=== PATIENT | male | born 1985 | race Caucasian/White ===

== ENCOUNTER 2019-12-25 06:09 | Emergency (ER) | payer OTHER, SELFPAY ==
[~2019-12-25] VITALS: Ht 172.7 cm; Wt 117.9 kg
[2019-12-25 06:29] VITALS: BP 139/84
--- NOTE | 2019-12-25 06:31 | NUR ---
JING DURAN EVALUATING PT.
--- NOTE | 2019-12-25 06:31 | NUR ---
TRIAGED AND WAITING IN TENT.
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
--- NOTE | 2019-12-25 06:41 | NUR ---
NO NURSING INTERVVENTION ORDERED BY JING DURAN.
--- NOTE | 2019-12-25 06:41 | NUR ---
COVID SWAB COLLECTED AND SENT TO LAB.
--- NOTE | 2019-12-25 06:41 | NUR ---
Patient discharged with v/s stable. Written and verbal after care instructions given and explained. Patient verbalized understanding. Ambulatory with steady gait. All questions addressed prior to discharge. Advised to follow up with PMD.
--- NOTE | 2019-12-26 17:38 | NUR ---
COVID-19 RESULT POSITIVE, COPY OF RESULTS WILL BE GIVEN TO SUNNI AT [facility] CONTROL
== END 2019-12-25 06:41 | disposition home or self-care (01) ==
LOC: MED 06:09
DX: U07.1 COVID-19 (principal); B34.9 Viral infection, unspecified
CPT/HCPCS: 99283; U0003

== ENCOUNTER 2020-04-06 07:46 | Emergency (ER) | payer OTHER, SELFPAY ==
[~2020-04-06] VITALS: Ht 165.1 cm; Wt 109.8 kg
[2020-04-06 07:56] VITALS: BP 121/75
[2020-04-06] MEDS ORDERED: KETOROLAC 60 MG/2 ML VIAL IM ONE (08:10)
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
[2020-04-06 08:34] VITALS: BP 121/75
== END 2020-04-06 08:34 | disposition home or self-care (01) ==
LOC: MED 07:49
DX: M25.511 Pain in right shoulder (principal); M25.512 Pain in left shoulder; M54.5 Low back pain; V49.40XA Driver injured in collision with unspecified motor vehicles in traffic accident, initial encounter; Y93.89 Activity, other specified; Y92.89 Other specified places as the place of occurrence of the external cause; Y99.8 Other external cause status
CPT/HCPCS: 96372; 99283; J1885

== ENCOUNTER 2021-01-23 12:58 | Emergency (ER) | payer OTHER ==
[~2021-01-23] VITALS: Ht 165.1 cm; Wt 100.7 kg
[2021-01-23 13:10] VITALS: BP 130/70
--- NOTE | 2021-01-23 13:10 | NUR ---
PT AMBULATED TO BED 12 WITH STEADY GAIT
[2021-01-23] MEDS ORDERED: KETOROLAC 60 MG/2 ML VIAL IM ONE (13:20)
--- NOTE | 2021-01-23 13:53 | NUR ---
PT TRANSFERRED TO XRAY VIA W/C
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
--- NOTE | 2021-01-23 13:59 | NUR ---
PATIENT GIVEN TORADOL 60MG IM INJ FOR PAIN TO R GLUTE, PER MD ORDER.
[2021-01-23] MEDS ORDERED: METH-1681 PO (14:14)
[2021-01-23] MEDS ORDERED: LIDO1ADH47 TP (14:14)
[2021-01-23] MEDS ORDERED: NAPR-54 PO (14:14)
--- NOTE | 2021-01-23 14:36 | NUR ---
Patient discharged with v/s stable. Written and verbal after care instructions given and explained. Patient alert, oriented and verbalized understanding of instructions. Ambulatory with steady gait. All questions addressed prior to discharge. ID band removed. Patient advised to follow up with PMD. Rx of LIDOCAINE, ROBAXIN, NAPROXIN given. Patient educated on indication of medication including possible reaction and side effects. Opportunity to ask questions provided and answered.
== END 2021-01-23 14:36 | disposition home or self-care (01) ==
LOC: MED 12:58
DX: S13.4XXA Sprain of ligaments of cervical spine, initial encounter (principal); M54.2 Cervicalgia; Z79.899 Other long term (current) drug therapy; V89.2XXA Person injured in unspecified motor-vehicle accident, traffic, initial encounter; Y93.89 Activity, other specified; Y92.89 Other specified places as the place of occurrence of the external cause; Y99.8 Other external cause status
CPT/HCPCS: 72040; 96372; 99283; J1885

== ENCOUNTER 2021-08-28 11:14 | Emergency (ER) | payer OTHER ==
[~2021-08-28] VITALS: Ht 167.6 cm; Wt 104.3 kg
[~2021-08-28 11:14] MED LIST: LIDO1ADH47 TP; METH-1681 PO; NAPR-54 PO
--- NOTE | 2021-08-28 11:22 | NUR ---
Patient ambulated to bed 2.
[2021-08-28 11:24] VITALS: BP 141/87
--- NOTE | 2021-08-28 11:40 | NUR ---
35 Y/O MALE BIB SELF C/P VILLASENOR/DIZZINESS X 3WKS. PAIN CURRENTLY IS RATED 8/10, SHARP CONSTANT TYPE OF PAIN RADIATING TO EYES. PT DENIES SOB, CHEST PAIN, FEVER, CHILLS. DENIES MEDICATION PRIOR TO ARRIVAL. BED LOCKED IN LOWEST POSITION, SIDE RAIL X1. CALL LIGHT WITHIN REACH. PMH:DENIES MEDS:DENIES NKA
[2021-08-28] MEDS ORDERED: MORPHINE SULFATE 4 MG/ML SYR IM ONE (12:05)
--- NOTE | 2021-08-28 12:29 | NUR ---
UA DONE-SENT TO LAB
--- NOTE | 2021-08-28 12:30 | NUR ---
IM MEDS GIVEN-NADR AT THIS TIME
[2021-08-28] MEDS ORDERED: IBUP-2213 PO (12:55)
[2021-08-28] MEDS ORDERED: ACET-8386 PO (12:55)
[2021-08-28 13:05] VITALS: BP 141/87
--- NOTE | 2021-08-28 13:07 | NUR ---
Patient discharged with v/s stable. Written and verbal after care instructions given and explained. Patient alert, oriented and verbalized understanding of instructions. Ambulatory with steady gait. All questions addressed prior to discharge. ID band removed. Patient advised to follow up with PMD. Rx of HYDROCODONE/IBUPROFEN given. Patient educated on indication of medication including possible reaction and side effects. Opportunity to ask questions provided and answered.
== END 2021-08-28 13:05 | disposition home or self-care (01) ==
LOC: MED 11:14
DX: R51.9 Headache, unspecified (principal); Z79.899 Other long term (current) drug therapy
CPT/HCPCS: 70450; 81002; 96372; 99284; J2270